=== PATIENT | female | born 1980 | race Caucasian/White ===

== ENCOUNTER 2016-05-14 11:07 | Emergency (ER) | payer MEDICAID, OTHER ==
[~2016-05-14] VITALS: Ht 172.7 cm; Wt 115.0 kg
[~2016-05-14 11:07] MED LIST: HYDR-3534 PO
[2016-05-14 11:26] VITALS: BP 122/82; PULSE 80; RESP 16; TEMP 98.8; O2SAT 98
--- NOTE | 2016-05-14 12:16 | PD ---
HPI Chief Complaint: Respiratory Symptoms Time Seen by Provider: 12:08 Travel History International Travel<30 days: No Contact w/Intl Traveler<30days: No Traveled to known affect area: No History of Present Illness HPI 35-year-old female smoker presents for evaluation of a cough. She says that the cough started 6 months ago and he never went away. She reports that today she [place] and the cough became worse which prompted evaluation. She reports that she took a shower which seemed to help. The cough is occasionally productive sputum. Denies fevers or chills. Denies any significant past medical history. She has no other complaints. PFSH Past Medical History Cancer: No Cardiovascular Problems: No Diabetes: No Diminished Hearing: No Endocrine: No Gastrointestinal Disorders: Yes (gerd) Genitourinary: No Hepatitis: No Hiatal Hernia: No Hypertension: No Immune Disorder: No Musculoskeletal: No Neurologic: No Psychiatric: No Reproductive: No Respiratory: Yes (PNEUMONIA AND BRONCHITIS) Thyroid Disease: No Influenza Vaccination: No ?: Not LMP: 05/05/16 Tubal Ligation: Yes Past Surgical History AICD: No Joint Replacement: No Pacemaker: No Other Surgery: No Social History Alcohol Use: No Tobacco Use: Yes (smokes a half a pack of cigarettes per day) Substance Use: No Allergies-Medications (Allergen,Severity, Reaction): Coded Allergies: Tums (Verified Adverse Reaction, Intermediate, VOMITING, 05/14/16) Reported Meds & Prescriptions Reported Meds & Active Scripts Active Proair Hfa 8.5 GM Inh (Albuterol Sulfate) 90 Mcg/Act Aer 2 Puff INH Q4-6H PRN 108 mcg/actuation Prednisone 20 Mg Tab 20 Mg PO BID 5 Days Review of Systems Except as stated in HPI: all other systems reviewed are Neg Physical Exam Narrative GENERAL: Well developed well-nourished female in no acute distress SKIN: Warm and dry. HEAD: Atraumatic. Normocephalic. EYES: Pupils equal and round. No scleral icterus. No injection or drainage. ENT: No nasal bleeding or discharge. Mucous membranes pink and moist. No oropharyngeal erythema or exudate. NECK: Trachea midline. No JVD. No lymphadenopathy. CARDIOVASCULAR: Regular rate and rhythm. No murmur appreciated. RESPIRATORY: No accessory muscle use. Clear to auscultation. Breath sounds equal bilaterally. Faint wheezing. No crackles. GASTROINTESTINAL: Abdomen soft, non-tender, nondistended. Hepatic and splenic margins not palpable. Data Data Last Documented VS Vital Signs Date Time Temp Pulse Resp B/P Pulse Ox O2 Delivery O2 Flow Rate FiO2 05/14/16 11:26 98.8 80 16 122/82 98 Orders Chest, Pa & Lat (05/14/16 ) MDM Medical Decision Making Medical Screen Exam Complete: Yes Emergency Medical Condition: Yes Medical Record Reviewed: Yes Interpretation(s) Chest x-ray normal Differential Diagnosis Bronchitis, seasonal allergies, chronic bronchitis, pneumonia, reactive airway disease, asthma Narrative Course This is a 35-year-old female smoker who presents with 6 month duration of cough. On examination she does have faint wheezing. I discussed with the patient thoroughly the importance of tobacco cessation. Ideally this patient follow-up with a sketcher for further investigation of this chronic cough. Diagnosis Primary Impression: Chronic cough Departure Forms: Tests/Procedures, Work Release Enter return to work date: May 15, 2016 Additional Instructions: Quit using tobacco products. Medication as prescribed. Follow-up with a primary care physician or sketcher. Return for any emergent medical conditions. Med/Other Pt SpecificInfo: Prescription(s) given Scripts Albuterol 8.5 GM Inh (Proair Hfa 8.5 GM Inh)90 Mcg/Act Aer2 Puff INH Q4-6H PRN ( SHORTNESS OF BREATH) #1 INHALER Ref 0 108 mcg/actuation Prov:Dwaine Espino MD 05/14/16 Prednisone 20 Mg Tab20 Mg PO BID 5 Days Ref 0 Prov:Dwaine Espino MD 05/14/16 Disposition: 01 DISCHARGE HOME Condition: Stable Mike Rizo May 14, 2016 12:16
[2016-05-14] MEDS ORDERED: ALBUAER3 INH (12:17)
[2016-05-14] MEDS ORDERED: PRED20 PO (12:17)
--- NOTE | 2016-05-14 12:59 | RADHPO ---
EXAM DATE/TIME: 05/14/2016 12:15 [facility] COMPARISON: CHEST PA & LAT, October 28, 2015, 12:58. INDICATIONS : Shortness of breath. MEDICAL HISTORY : Bronchitis. SURGICAL HISTORY : None. ENCOUNTER: Initial ACUITY: 4 - 6 months PAIN SCORE: 0/10 LOCATION: Bilateral chest FINDINGS: PA and lateral views of the chest demonstrate the lungs to be symmetrically aerated without evidence of mass, infiltrate or effusion. The cardiomediastinal contours are unremarkable. Osseous structure s are intact. CONCLUSION: No acute disease. Bharat Parks MD on May 14, 2016 at 12:57 Board Certified Radiologist. This report was verified electronically.
== END 2016-05-14 13:13 | disposition home or self-care (01) ==
LOC: PHEFT 11:07
DX: R05 Cough (principal); F17.210 Nicotine dependence, cigarettes, uncomplicated
CPT/HCPCS: 71020; 99283

== ENCOUNTER 2016-07-03 18:26 | Emergency (ER) | payer MEDICAID, OTHER ==
[~2016-07-03] VITALS: Ht 175.3 cm; Wt 115.9 kg
[~2016-07-03 18:26] MED LIST changes: +ALBUAER3 INH; -HYDR-3534 PO; +PRED20 PO
[2016-07-03 18:37] VITALS: BP 144/89; PULSE 108; RESP 18; TEMP 98.5; O2SAT 100
[2016-07-03] MEDS ORDERED: SODIUM CHLOR 0.9% 1000 ML INJ 1,000 ML IV ONE (19:57)
[2016-07-03] MEDS ORDERED: KETOROLAC TROMETHAMINE 30 MG/ML (IVP) VIAL IVP ONE (20:00)
[2016-07-03] MEDS ORDERED: ONDANSETRON HCL 4 MG/2 ML VIAL IVP ONE (20:00)
[2016-07-03] MEDS ORDERED: SODIUM CHLORIDE 0.9% FLUSH 10 ML FLUSH IVF PRN (20:00)
[2016-07-03 20:25] VITALS: RESP 18; O2SAT 98
[2016-07-03 20:26] VITALS: BP 121/53; PULSE 66; RESP 18; O2SAT 98
[2016-07-03 20:32] LABS: BLOOD, URINE NEG (NEG); GLUCOSE,URINE NEG (NEG); KETONE, URINE NEG (NEG); NITRITE,URINE NEG (NEG)
[2016-07-03 20:38] LABS: URINE COLOR YELLOW (YELLW/STRAW); WBC, URINE 0-2 /hpf (0-5)
[2016-07-03 20:39] LABS: COMMENT (UR) CULT NOT INDICATED; CULTURE IF INDICATED CULT NOT INDICATED; SQUAMOUS EPITHELIAL CELL URINE 0-5 /hpf (0-5)
[2016-07-03 21:19] VITALS: RESP 18
[2016-07-03] MEDS ORDERED: PROM25TA5 PO (21:21)
--- NOTE | 2016-07-03 21:22 | PD ---
HPI Chief Complaint: Headache Time Seen by Provider: 19:57 Travel History International Travel<30 days: No Contact w/Intl Traveler<30days: No Traveled to known affect area: No History of Present Illness HPI 36-year-old female presents to the emergency department by private transportation for complaint of migraine headache. Patient and frequently has migrainous headaches with cephalgia photophobia nausea. Patient does not have prodrome and does not associate headache onset with a specific event or activity. No recent fall or injury. Patient denies fever chills nausea vomiting respiratory illness symptoms sinusitis rhinorrhea or congestion sore throat earache neck stiffness cough chest pain also no GI complaint of abdominal pain diarrheal illness and no recent urinary symptoms for dysuria frequency urgency flank pain hematuria. Patient's last period was normal for her and denies . Patient rates headache pain 8-9/10 in intensity. Headache is not sudden onset thunderclap or worst ever. Patient with family history of headache and her mother and grandmother. No report of family history of cerebral aneurysm or subarachnoid hemorrhage. Patient denies any injury or fall. No neck stiffness denies any change in mentation double vision loss of vision change in speech or balance disturbance upper extremity numbness tingling or weakness. Patient states she is use [id number] medications acetaminophen and ibuprofen without symptomatic relief. Patient unable to identify exacerbating or alleviating factors. PFSH Past Medical History Narrative Medical Pneumonia bronchitis headache; tobacco use; nursing notes reviewed Cancer: No Cardiovascular Problems: No Diabetes: No Diminished Hearing: No Endocrine: No Gastrointestinal Disorders: Yes (gerd) Genitourinary: No Hepatitis: No Hiatal Hernia: No Hypertension: No Immune Disorder: No Musculoskeletal: No Neurologic: No Psychiatric: No Reproductive: No Respiratory: Yes (PNEUMONIA AND BRONCHITIS) Thyroid Disease: No Tetanus Vaccination: < 5 Years Influenza Vaccination: No ?: Not Tubal Ligation: Yes Past Surgical History AICD: No Joint Replacement: No Pacemaker: No Other Surgery: No Social History Alcohol Use: No Tobacco Use: Yes (smokes a half a pack of cigarettes per day) Substance Use: No Allergies-Medications (Allergen,Severity, Reaction): Coded Allergies: Tums (Verified Adverse Reaction, Intermediate, VOMITING, 07/03/16) Reported Meds & Prescriptions Reported Meds & Active Scripts Active Phenergan (Promethazine HCl) 25 Mg Tab 25 Mg PO Q6H PRN Review of Systems Except as stated in HPI: all other systems reviewed are Neg General / Constitutional: No: Fever, Chills Eyes: Positive: Photophobia, No: Diploplia, Blurred Vision HENT: Positive: Headaches, No: Congestion, Neck Stiffness, Neck Pain Cardiovascular: No: Chest Pain or Discomfort Respiratory: No: Shortness of Breath Gastrointestinal: No: Vomiting, Abdominal Pain Genitourinary: No: Dysuria Musculoskeletal: No: Myalgias, Arthralgias Skin: No Rash Neurologic: No: Weakness Psychiatric: No: Anxiety, Depression Endocrine: No: Heat Intolerance Hematologic/Lymphatic: No: Easy Bruising Physical Exam Narrative GENERAL: Well-developed well-nourished female in no acute distress no respiratory distress sitting comfortably in darkened room; GCS 15. SKIN: Warm and dry. HEAD: Atraumatic. Normocephalic. EYES: Pupils equal and round. Extraocular muscles intact. No scleral icterus. No injection or drainage. No papilledema by funduscopic exam. ENT: No nasal bleeding or discharge. Mucous membranes pink and moist. NECK: Trachea midline. No JVD. Supple no meningismus no nuchal rigidity. CARDIOVASCULAR: Regular rate and rhythm. RESPIRATORY: No accessory muscle use. Clear to auscultation. Breath sounds equal bilaterally. GASTROINTESTINAL: Abdomen soft, non-tender, nondistended. Hepatic and splenic margins not palpable. MUSCULOSKELETAL: Extremities without clubbing, cyanosis, or edema. No obvious deformities. NEUROLOGICAL: Awake and alert. No obvious cranial nerve deficits. Motor grossly within normal limits. Five out of 5 muscle strength in the arms and legs. No limb ataxia. No pronator drift. Sensory exam intact. DTRs 2+ and symmetric bilaterally. Normal speech. PSYCHIATRIC: Appropriate mood and affect; insight and judgment normal. Data Data Last Documented VS Vital Signs Date Time Temp Pulse Resp B/P Pulse Ox O2 Delivery O2 Flow Rate FiO2 07/03/16 21:19 18 07/03/16 20:53 68 98 Room Air 07/03/16 20:26 121/53 07/03/16 18:37 98.5 Orders Ecg Monitoring (07/03/16 19:57) Iv Access Insert/Monitor (07/03/16 19:57) Oximetry (07/03/16 19:57) Sodium Chloride 0.9% Flush (Ns Flush) (07/03/16 20:00) Ketorolac Inj (Toradol Inj) (07/03/16 20:00) Ondansetron Inj (Zofran Inj) (07/03/16 20:00) Sodium Chlor 0.9% 1000 Ml Inj (Ns 1000 M (07/03/16 19:57) Urinalysis - C+S If Indicated (07/03/16 19:57) Ed Urine Pregnancytest Poc (07/03/16 19:57) Labs Laboratory Tests Test 07/03/16 20:10 Urine Color YELLOW Urine Turbidity CLEAR Urine pH 6.0 Urine Specific [place] 1.005 Urine Protein NEG mg/dL Urine Glucose (UA) NEG mg/dL Urine Ketones NEG mg/dL Urine Occult Blood NEG Urine Nitrite NEG Urine Bilirubin NEG Urine Leukocyte Esterase NEG Urine WBC 0-2 /hpf Urine Squamous Epithelial 0-5 /hpf Cells Microscopic Urinalysis Comment CULT NOT INDICATED MDM Medical Decision Making Medical Screen Exam Complete: Yes Emergency Medical Condition: Yes Medical Record Reviewed: Yes Interpretation(s) poc hcg: negative ua: wnl Differential Diagnosis Headache, dehydration, viral syndrome, ich Narrative Course IV access obtained specimens collected and sent for resulting patient administered Toradol 30 mg IV Zofran 4 mg IV along with 1 L normal saline Urinalysis eyes normal range; [id number] hCG negative Patient reassessed and headache has markedly improved according to patient however rates pain 1-2/10 in intensity mild nausea but she states is related to the medication as most medication administered to her for nausea causes nausea. Patient reports she is desirous of being discharged home and voices no concerns for request work excuse. Diagnosis Primary Impression: Headache Additional Impression: H/O atypical migraine Referrals: Primary Care Physician call for appointment Patient Instructions: General Instructions Departure Forms: Tests/Procedures, Work Release Special Instructions: no work x 1 day Additional Instructions: No work times one day Follow-up with primary care provider Take Phenergan as prescribed as needed for nausea and/or vomiting Return to the emergency department for any concerns or change in condition Increase fluid hydration Take acetaminophen/Tylenol every 4 hours as needed for fever 100.4F or greater Take ibuprofen 6 mg as often as every 6 hours or 800 mg as often as every 8 hours as needed for pain associated inflammation or for fever 100.4F or greater Med/Other Pt SpecificInfo: Prescription(s) given Scripts Promethazine (Phenergan)25 Mg Tab25 Mg PO Q6H PRN (Nausea/Vomiting) #10 TAB Ref 0 Prov:Brigitte Goetz MD 07/03/16 Disposition: 01 DISCHARGE HOME Condition: Stable Brigitte Goetz MD Jul 03, 2016 21:22
[2016-07-03 21:59] VITALS: BP 123/57
== END 2016-07-03 22:03 | disposition home or self-care (01) ==
LOC: PHED 18:26
DX: R51 Headache (principal); H53.149 Visual discomfort, unspecified; R11.0 Nausea; F17.210 Nicotine dependence, cigarettes, uncomplicated
CPT/HCPCS: 81001; 84703; 96361; 96374; 96375; 99284; J1885; J2405; J7030

== ENCOUNTER 2016-07-23 21:58 | Emergency (ER) | payer MEDICAID, OTHER ==
[~2016-07-23] VITALS: Ht 175.3 cm; Wt 114.0 kg
[~2016-07-23 21:58] MED LIST changes: -ALBUAER3 INH; -PRED20 PO; +PROM25TA5 PO
[2016-07-23 22:08] VITALS: BP 108/72; PULSE 79; RESP 18; TEMP 98.6; O2SAT 98
[2016-07-23] MEDS ORDERED: IBUP400T20 PO (22:43)
[2016-07-23] MEDS ORDERED: PENICILLIN V POTASSIUM 500 MG TAB PO ONE (23:00)
[2016-07-23] MEDS ORDERED: LIDOCAINE 1%/EPINEPHrine 1:100,000 SOLN 20 ML VIAL INFIL ONE (23:00)
--- NOTE | 2016-07-23 23:05 | PD ---
HPI Chief Complaint: Oral / Dental Pain or Problem Time Seen by Provider: 22:44 Travel History International Travel<30 days: No Contact w/Intl Traveler<30days: No Traveled to known affect area: No History of Present Illness HPI 36-year-old female here for evaluation of left upper/posterior dental pain. Symptoms started around 6:30 while eating dinner. Pain was initially 7 out of 10, sharp. She took some ibuprofen. Pain is now 4 out of 10, constant. She is able to swallow and tolerate her secretions. PFSH Past Medical History Cancer: No Cardiovascular Problems: No Diabetes: No Diminished Hearing: No Endocrine: No Gastrointestinal Disorders: Yes (GERD) Genitourinary: No Hepatitis: No Hiatal Hernia: No Hypertension: No Immune Disorder: No Musculoskeletal: No Neurologic: No Psychiatric: No Reproductive: No Respiratory: Yes (PNEUMONIA AND BRONCHITIS) Thyroid Disease: No Influenza Vaccination: No ?: Unknown LMP: 07/03/16 : 4 Tubal Ligation: Yes Past Surgical History AICD: No Joint Replacement: No Pacemaker: No Other Surgery: No Social History Alcohol Use: No Tobacco Use: Yes (smokes a half a pack of cigarettes per day) Substance Use: No Allergies-Medications (Allergen,Severity, Reaction): Coded Allergies: Tums (Verified Adverse Reaction, Intermediate, VOMITING, 07/23/16) Reported Meds & Prescriptions Reported Meds & Active Scripts Active Reported Ibuprofen 400 Mg Tab 400 Mg PO Q4H PRN Review of Systems Except as stated in HPI: all other systems reviewed are Neg Physical Exam Narrative GENERAL: Pleasant, well-developed, well-nourished, comfortable, no acute distress. SKIN: Focused skin assessment warm/dry. HEAD: Atraumatic. Normocephalic. Mild left cheek swelling. EYES: Pupils equal and round. No scleral icterus. No injection or drainage. ENT: Mucous membranes pink and moist. No tongue or lip swelling. No drooling or stridor. Left upper/posterior molar with severe decay and tenderness. NECK: Trachea midline. No JVD. No nuchal rigidity. CARDIOVASCULAR: Regular rate and rhythm. Data Data Last Documented VS Vital Signs Date Time Temp Pulse Resp B/P Pulse Ox O2 Delivery O2 Flow Rate FiO2 07/23/16 22:41 20 07/23/16 22:08 98.6 79 108/72 98 Orders Penicillin V Potassium (Veetids) (5/15/17 23:00) Lidocai-Epi 1%-1:100,000 Inj (Xylocaine- (07/23/16 23:00) MDM Medical Decision Making Medical Screen Exam Complete: Yes Emergency Medical Condition: Yes Medical Record Reviewed: Yes Differential Diagnosis Dental pain, dental infection, dental cavity, abscess Narrative Course Left greater palatine nerve block performed and patient experienced immediate relief of pain. She was given a dose of Pen-VK here and will be discharged home with a prescription for Pen-VK and pain medication. She was instructed to follow-up with a dentist as soon as possible. She was informed on when to return to the emergency department. She verbalizes understanding and agreement with plan. Procedures Procedure Narrative Left greater palatine nerve block: 1 cc of 1% lidocaine with epinephrine was injected in the site of the left greater palatine nerve. Patient expressed immediate relief of pain. Tolerated well. No complications. Diagnosis Primary Impression: Pain, dental Referrals: Dentist 3 days Additional Instructions: Follow-up with a dentist this week. Return to the emergency department for worsening symptoms or any other concerns. Scripts Hydrocodone-Acetaminophen (Lortab)5-325 Mg Tab1 Tab PO Q6H PRN (PAIN) #15 TAB Ref 0 Prov:Jorge Alberto Argueta MD 07/23/16 Penicillin V Potassium 500 Mg [id number] Mg PO Q6H 10 Days Ref 0 Prov:Jorge Alberto Argueta MD 07/23/16 Disposition: 01 DISCHARGE HOME Condition: Stable Jorge Alberto Argueta MD July 23, 2016 23:05
[2016-07-23] MEDS ORDERED: HYDR-3533 PO (23:06)
[2016-07-23] MEDS ORDERED: PENI500T PO (23:06)
== END 2016-07-23 23:22 | disposition home or self-care (01) ==
LOC: PHED 21:58 → PHEFT 23:22
DX: K08.89 Other specified disorders of teeth and supporting structures (principal); K21.9 Gastro-esophageal reflux disease without esophagitis; F17.210 Nicotine dependence, cigarettes, uncomplicated
CPT/HCPCS: 64400

== ENCOUNTER 2017-03-18 16:33 | Emergency (ER) | payer BC, OTHER ==
[~2017-03-18] VITALS: Ht 175.3 cm; Wt 117.0 kg
[~2017-03-18 16:33] MED LIST changes: +HYDR-3533 PO; +IBUP1TAB5 PO; +PENI500T PO; -PROM25TA5 PO
[2017-03-18 16:39] VITALS: BP 162/83; PULSE 70; RESP 16; TEMP 98.8; O2SAT 98
--- NOTE | 2017-03-18 17:08 | PD ---
HPI Chief Complaint: Oral / Dental Pain or Problem Time Seen by Provider: 16:53 Travel History International Travel<30 days: No Contact w/Intl Traveler<30days: No Traveled to known affect area: No History of Present Illness HPI 36-year-old female with left upper dental pain. Symptom onset 1 week. Aggravated by heat, cold, chewing. Slightly relieved with dtcm-bsz-colspzk ibuprofen and Tylenol. Symptom severity is moderate. PFSH Past Medical History Medical History: Denies Significant Hx Cancer: No Cardiovascular Problems: No Diabetes: No Diminished Hearing: No Endocrine: No Gastrointestinal Disorders: Yes (GERD) Genitourinary: No Hepatitis: No Hiatal Hernia: No Hypertension: No Immune Disorder: No Musculoskeletal: No Neurologic: No Psychiatric: No Reproductive: No Respiratory: Yes (PNEUMONIA AND BRONCHITIS) Thyroid Disease: No Tetanus Vaccination: < 5 Years Influenza Vaccination: No ?: Not LMP: 03/18/17 : 4 Tubal Ligation: Yes Past Surgical History Surgical History: No Previous Surgery AICD: No Joint Replacement: No Pacemaker: No Other Surgery: No Social History Alcohol Use: No Tobacco Use: Yes (03/14 PPD) Substance Use: No Allergies-Medications (Allergen,Severity, Reaction): Coded Allergies: Sulfa (Sulfonamide Antibiotics) (Verified Allergy, Unknown, 03/18/17) hydrocodone (Verified Allergy, Unknown, 03/18/17) calcium (Unverified Adverse Reaction, Intermediate, VOMITING, 03/18/17) calcium carbonate (Unverified Adverse Reaction, Intermediate, VOMITING, 03/18/17) Reported Meds & Prescriptions Reported Meds & Active Scripts Active Reported Ibuprofen 400 Mg Tab 400 Mg PO Q4H PRN Review of Systems Except as stated in HPI: all other systems reviewed are Neg General / Constitutional: No: Fever Eyes: No: Visual changes HENT: No: Headaches Cardiovascular: No: Chest Pain or Discomfort Respiratory: No: Shortness of Breath Gastrointestinal: No: Abdominal Pain Genitourinary: No: Dysuria Physical Exam Narrative GENERAL: Alert well-appearing female. SKIN: Warm and dry. HEAD: Normocephalic. EYES: No scleral icterus. No injection or drainage. MOUTH: Mucous membranes moist, no lesions, tongue appear normal. Widespread dental decay. Left upper molar decayed with surrounding gum erythema. NECK: Supple, trachea midline. No lymphadenopathy. Data Data Last Documented VS Vital Signs Date Time Temp Pulse Resp B/P (MAP) Pulse Ox O2 Delivery O2 Flow Rate FiO2 03/18/17 16:39 98.8 70 16 162/83 (109) 98 MDM Medical Decision Making Medical Screen Exam Complete: Yes Emergency Medical Condition: Yes Differential Diagnosis Dental abscess, dental caries, periodontal disease Narrative Course 36 year old female here with left upper dental pain. She has widespread dental decay. She has a decayed and fractured tooth to the left upper molar with surrounding gum erythema. She'll be treated for dental infection. She is to follow-up with the dentist Diagnosis Primary Impression: Dentalgia Referrals: Dentist Scripts Nwvsooro-Igutihndurowmbq-Cqagnwlex Liq (Magic Mouthwash Adult Liq) 120 Ml Susp 10 ML SWISH-SWAL ACHS for Mouth sores, #120 ML 0 Refills Each 5mL contains: Nystatin 200,000units, Diphenhydramine 4.25mg, Viscous Lidocaine 10mg, [place] syrup 0.8 mL Prov: Yessy Hay 03/18/17 Amoxicillin (Amoxicillin) 500 Mg Tab 500 MG PO TID for Infection for 7 Days, TAB 0 Refills Prov: Yessy Hay 03/18/17 Yessy Hay Mar 18, 2017 17:08
[2017-03-18] MEDS ORDERED: AMOX500T PO (17:11)
[2017-03-18] MEDS ORDERED: MAGICADU2 SWISH-SWAL (17:12)
== END 2017-03-18 17:23 | disposition home or self-care (01) ==
LOC: PHEFT 16:33
DX: K13.70 Unspecified lesions of oral mucosa (principal); K08.89 Other specified disorders of teeth and supporting structures; K21.9 Gastro-esophageal reflux disease without esophagitis; F17.200 Nicotine dependence, unspecified, uncomplicated
CPT/HCPCS: 99284

== ENCOUNTER 2017-04-07 14:21 | Emergency (ER) | payer SELFPAY ==
[~2017-04-07] VITALS: Ht 175.3 cm; Wt 114.0 kg
[~2017-04-07 14:21] MED LIST changes: +AMOX500T PO; -HYDR-3533 PO; +MAGICADU2 SWISH-SWAL; -PENI500T PO
[2017-04-07 14:44] VITALS: BP 134/75; PULSE 75; RESP 16; TEMP 98.5; O2SAT 100
--- NOTE | 2017-04-07 16:18 | PD ---
HPI Chief Complaint: Musculoskeletal Complaint Time Seen by Provider: 15:48 Travel History International Travel<30 days: No Contact w/Intl Traveler<30days: No Traveled to known affect area: No History of Present Illness HPI 36-year-old female presents to emergency department complaining of right wrist pain that started yesterday. States that she was playing with her daughter at [employer] and went home on the couch and this started hurting. States that she does lift her child regularly and says that she got her thumb caught at one point but is unable to describe this incident and did not have pain at the time. Patient denies falls or other trauma. Patient describes the pain as dull and has occasional radiating pain from the wrist to the lateral elbow. Patient has decreased range of motion of rotational movement of her forearm secondary to pain. Patient states she also has mild tenderness to palpation of the elbow joint. Denies fever, chills. Denies numbness or tingling. Denies chronic medical issues. PFSH Past Medical History Cancer: No Cardiovascular Problems: No Diabetes: No Diminished Hearing: No Endocrine: No Gastrointestinal Disorders: Yes (GERD) Genitourinary: No Hepatitis: No Hiatal Hernia: No Hypertension: No Immune Disorder: No Musculoskeletal: No Neurologic: No Psychiatric: No Reproductive: No Respiratory: Yes (PNEUMONIA AND BRONCHITIS) Thyroid Disease: No : 4 Tubal Ligation: Yes Past Surgical History AICD: No Joint Replacement: No Pacemaker: No Other Surgery: No Social History Alcohol Use: No Tobacco Use: Yes (03/14 PPD) Substance Use: No Allergies-Medications (Allergen,Severity, Reaction): Coded Allergies: Sulfa (Sulfonamide Antibiotics) (Verified Allergy, Unknown, 04/07/17) hydrocodone (Verified Allergy, Unknown, 04/07/17) calcium (Unverified Adverse Reaction, Intermediate, VOMITING, 04/07/17) calcium carbonate (Unverified Adverse Reaction, Intermediate, VOMITING, ) Reported Meds & Prescriptions Reported Meds & Active Scripts Active Amoxicillin 500 Mg Tab 500 Mg PO TID 7 Days Review of Systems Except as stated in HPI: all other systems reviewed are Neg Physical Exam Narrative GENERAL: Well-developed well-nourished in no apparent distress SKIN: Focused skin assessment warm/dry. HEAD: Atraumatic. Normocephalic. EYES: Pupils equal and round. No scleral icterus. No injection or drainage. ENT: No nasal bleeding or discharge. Mucous membranes pink and moist. NECK: Trachea midline. No JVD. CARDIOVASCULAR: Regular rate and rhythm. No murmur appreciated. RESPIRATORY: No accessory muscle use. Clear to auscultation. Breath sounds equal bilaterally. GASTROINTESTINAL: Abdomen soft, non-tender, nondistended. Left wrist- TTP over lateral wrist and thumb base, positive Finkelsteins, negative Tinel's, negative, senior mechanical engineer strength equal bilateral. No rashes present MUSCULOSKELETAL: No obvious deformities. No clubbing. No cyanosis. No edema. NEUROLOGICAL: Awake and alert. No obvious cranial nerve deficits. Motor grossly within normal limits. Normal speech. PSYCHIATRIC: Appropriate mood and affect; insight and judgment normal. Data Data Last Documented VS Vital Signs Date Time Temp Pulse Resp B/P (MAP) Pulse Ox O2 Delivery O2 Flow Rate FiO2 04/07/17 14:44 98.5 75 16 134/75 (94) 100 Orders Orders Wrist, Complete ([id number]) (04/07/17 ) Ibuprofen (Motrin) (04/07/17 16:30) Splint Or Brace Apply/Monitor (04/07/17 16:42) Ed Discharge Order (04/07/17 16:46) Cockup Hand Splint (04/07/17 ) MDM Medical Decision Making Medical Screen Exam Complete: Yes Emergency Medical Condition: Yes Differential Diagnosis Tenosynovitis, tendinitis, muscle spasms, wrist fracture Narrative Course 36-year-old female presents to emergency department complaining of right wrist pain that started yesterday. States that she was playing with her daughter at [employer] and went home on the couch and this started hurting. States that she does lift her child regularly and says that she got her thumb caught at one point but is unable to describe this incident and did not have pain at the time. Patient denies falls or other trauma. Patient describes the pain as dull and has occasional radiating pain from the wrist to the lateral elbow. Patient has decreased range of motion of rotational movement of her forearm secondary to pain. Patient states she also has mild tenderness to palpation of the elbow joint. Denies fever, chills. Denies numbness or tingling. Denies chronic medical issues. Vital signs stable. His exam findings consistent with tenosynovitis versus wrist fracture versus tendinitis X-ray without acute process. Wrist splint placed. Reassured patient. Advised she should follow-up with primary care physician for further treatment and evaluation. Consider orthopedics. Tylenol or Motrin per package instructions for pain relief. Return to the emergency room for worsening or persistent symptoms. As a side, patient has been taking antibiotics for almost a week and has developed diarrhea. Patient requests a work note for the diarrhea. Diagnosis Primary Impression: Tenosynovitis Referrals: Primary Care Physician Additional Instructions: Use ice or heat for symptom relief. Elevate the joint above the heart to reduce swelling. You may use compression with Lee wrap or similar to reduce swelling. If symptoms persist or worsen, return to the emergency department. Follow up with your primary care physician within 2 days. Consider following up with orthopedics for your pain. Disposition: 01 DISCHARGE HOME Condition: Stable Amna Barajas Apr 07, 2017 16:18
[2017-04-07] MEDS ORDERED: IBUPROFEN 800 MG TAB PO ONE (16:30)
--- NOTE | 2017-04-07 16:30 | RADRPT ---
EXAM DATE/TIME: 04/07/2017 15:46 [facility] COMPARISON: No previous studies available for comparison. INDICATIONS : All over right wrist pain, no known injury MEDICAL HISTORY : None. SURGICAL HISTORY : None. ENCOUNTER: Initial ACUITY: 2 days PAIN SCORE: 6/10 LOCATION: Right wrist FINDINGS: 3 views right wrist. Bone alignment within normal limits. No evidence of fracture. No evidence of deo int narrowing. No focal bone erosion. CONCLUSION: Right wrist series within normal limits. Nikhil Lopez MD on April 07, 2017 at 16:27 Board Certified Radiologist. This report was verified electronically.
== END 2017-04-07 17:02 | disposition home or self-care (01) ==
LOC: PHED 14:21 → PHEFT 17:02
DX: M65.9 Synovitis and tenosynovitis, unspecified (principal); R19.7 Diarrhea, unspecified; K21.9 Gastro-esophageal reflux disease without esophagitis; F17.200 Nicotine dependence, unspecified, uncomplicated; Z88.2 Allergy status to sulfonamides; Z88.5 Allergy status to narcotic agent
CPT/HCPCS: 73110; 99283; L3908

== ENCOUNTER 2017-04-25 15:48 | Emergency (ER) | payer SELFPAY ==
[~2017-04-25] VITALS: Ht 175.3 cm; Wt 113.0 kg
[~2017-04-25 15:48] MED LIST changes: -IBUP1TAB5 PO; -MAGICADU2 SWISH-SWAL
[2017-04-25 16:00] VITALS: BP 159/82; PULSE 70; RESP 16; TEMP 98.5; O2SAT 97
[2017-04-25 16:14] LABS: BILIRUBIN, URINE NEG (NEG); BLOOD, URINE NEG (NEG); GLUCOSE,URINE NEG (NEG); KETONE, URINE NEG (NEG); NITRITE,URINE NEG (NEG); PH, URINE 7.5 (5.0-8.5); URINE LEUKOCYTE ESTERASE NEG (NEG)
[2017-04-25 16:23] LABS: URINE COLOR YELLOW (YELLW/STRAW)
[2017-04-25 16:24] LABS: RBC, URINE 0-3 /hpf (0-3); WBC, URINE 0-2 /hpf (0-5)
[2017-04-25] MEDS ORDERED: ONDANSETRON HCL 4 MG/2 ML VIAL IV PUSH ONE (16:45)
[2017-04-25] MEDS ORDERED: SODIUM CHLOR 0.9% 1000 ML INJ 1,000 ML IV ONE (16:45)
[2017-04-25 17:05] LABS: AUTOMATED NEUTROPHIL # 5.6 TH/MM3 (1.8-7.7); BASOPHIL # 0.1 TH/MM3 (0-0.2); BASOPHIL % 0.9 % (0.0-2.0); EOSINOPHIL # 0.1 TH/MM3 (0-0.4); EOSINOPHIL % 1.8 % (0.0-4.0); HEMATOCRIT 40.8 % (35.0-46.0); HEMOGLOBIN 13.5 GM/DL (11.6-15.3); LYMPH % 25.1 % (9.0-44.0); MEAN CELL VOLUME 85.4 FL (80.0-100.0); MEAN CORPUSCULAR HEMOGLOBIN 28.3 PG (27.0-34.0); MEAN CORPUSCULAR HGB CONC 33.1 % (32.0-36.0); MEAN PLATELET VOLUME 11.3 FL (7.0-11.0); MONO % 4.1 % (0.0-8.0); MONOCYTE # 0.3 TH/MM3 (0-0.9); NEUT % 68.1 % (16.0-70.0); PLATELET COUNT 167 TH/MM3 (150-450); RED BLOOD COUNT 4.78 MIL/MM3 (4.00-5.30); RED CELL DISTRIBUTION WIDTH 12.7 % (11.6-17.2); WHITE BLOOD COUNT 8.1 TH/MM3 (4.0-11.0)
[2017-04-25 17:16] VITALS: BP 101/55; PULSE 69; RESP 16; O2SAT 97
--- NOTE | 2017-04-25 17:18 | PD ---
HPI Chief Complaint: GI Complaint Time Seen by Provider: 16:36 Travel History International Travel<30 days: No Contact w/Intl Traveler<30days: No Traveled to known affect area: No History of Present Illness HPI Patient is a 36-year-old female who comes in complaining of nausea. She says she had 2 episodes of vomiting earlier. She says that she was concerned, because she could not tell what was causing the nausea. She says she had a tubal ligation in 2016, thought that something could be going on with . 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 She denies any abdominal pain. She denies fever or chills. She says this just started today. Nothing has seemed to make the nausea better. Severity is mild. PFSH Past Medical History Cancer: No Cardiovascular Problems: No Diabetes: No Diminished Hearing: No Endocrine: No Gastrointestinal Disorders: Yes (GERD) GERD: Yes Genitourinary: No Hepatitis: No Hiatal Hernia: No Hypertension: No Immune Disorder: No Musculoskeletal: No Neurologic: No Psychiatric: No Reproductive: No Respiratory: Yes (PNEUMONIA AND BRONCHITIS) Pneumonia: Yes Thyroid Disease: No Tetanus Vaccination: < 5 Years Influenza Vaccination: No ?: Not LMP: 2 DAYS AGO/TUBAL : 4 Tubal Ligation: Yes Past Surgical History AICD: No Joint Replacement: No Pacemaker: No Other Surgery: No Social History Alcohol Use: No Tobacco Use: Yes (03/14 PPD) Substance Use: No Allergies-Medications (Allergen,Severity, Reaction): Coded Allergies: Sulfa (Sulfonamide Antibiotics) (Verified Allergy, Unknown, 04/25/17) hydrocodone (Verified Allergy, Unknown, 04/25/17) calcium (Unverified Adverse Reaction, Intermediate, VOMITING, 04/25/17) calcium carbonate (Unverified Adverse Reaction, Intermediate, VOMITING, ) Reported Meds & Prescriptions Reported Meds & Active Scripts Active Review of Systems Except as stated in HPI: all other systems reviewed are Neg General / Constitutional: No: Fever, Chills HENT: No: Headaches, Lightheadedness Cardiovascular: No: Chest Pain or Discomfort Respiratory: No: Shortness of Breath Gastrointestinal: Positive: Nausea, No: Diarrhea, Abdominal Pain, Constipation Genitourinary: No: Dysuria Musculoskeletal: No: Myalgias, Edema Skin: No Rash, No Change in Pigmentation Neurologic: No: Weakness, Dizziness Physical Exam Narrative GENERAL: Awake and alert, in no acute distress. SKIN: Focused skin assessment warm/dry. HEAD: Atraumatic. Normocephalic. EYES: Pupils equal and round. No scleral icterus. ENT: No nasal bleeding or discharge. Mucous membranes pink and moist. NECK: Trachea midline. No JVD. CARDIOVASCULAR: Regular rate and rhythm. No murmur appreciated. RESPIRATORY: No accessory muscle use. Clear to auscultation. Breath sounds equal bilaterally. GASTROINTESTINAL: Abdomen soft, non-tender, nondistended. MUSCULOSKELETAL: No obvious deformities. No clubbing. No cyanosis. No edema. NEUROLOGICAL: Awake and alert. No obvious cranial nerve deficits. Motor grossly within normal limits. Normal speech. PSYCHIATRIC: Appropriate mood and affect; insight and judgment normal. Data Data Last Documented VS Vital Signs Date Time Temp Pulse Resp B/P (MAP) Pulse Ox O2 Delivery O2 Flow Rate FiO2 04/25/17 17:16 69 16 101/55 (70) 97 Room Air 04/25/17 16:00 98.5 Orders Orders Urinalysis - C+S If Indicated (04/25/17 16:02) Ed Urine Pregnancytest Poc (04/25/17 16:02) Iv Access Insert/Monitor (04/25/17 16:43) Complete Blood Count With Diff (04/25/17 16:43) Comprehensive Metabolic Panel (04/25/17 16:43) Sodium Chlor 0.9% 1000 Ml Inj (Ns 1000 M (04/25/17 16:45) Ondansetron Inj (Zofran Inj) (04/25/17 16:45) Labs Laboratory Tests Test 04/25/17 16:00 04/25/17 16:54 Urine Color YELLOW Urine Turbidity CLEAR Urine pH 7.5 Urine Specific [place] 1.020 Urine Protein NEG mg/dL Urine Glucose (UA) NEG mg/dL Urine Ketones NEG mg/dL Urine Occult Blood NEG Urine Nitrite NEG Urine Bilirubin NEG Urine Leukocyte Esterase NEG Urine RBC 0-3 /hpf Urine WBC 0-2 /hpf Urine Squamous Epithelial Cells 6-8 /hpf Microscopic Urinalysis Comment CULT NOT INDICATED White Blood Count 8.1 TH/MM3 Red Blood Count 4.78 MIL/MM3 Hemoglobin 13.5 GM/DL Hematocrit 40.8 % Mean Corpuscular Volume 85.4 FL Mean Corpuscular Hemoglobin 28.3 PG Mean Corpuscular Hemoglobin Concent 33.1 % Red Cell Distribution Width 12.7 % Platelet Count 167 TH/MM3 Mean Platelet Volume 11.3 FL Neutrophils (%) (Auto) 68.1 % Lymphocytes (%) (Auto) 25.1 % Monocytes (%) (Auto) 4.1 % Eosinophils (%) (Auto) 1.8 % Basophils (%) (Auto) 0.9 % Neutrophils # (Auto) 5.6 TH/MM3 Lymphocytes # (Auto) 2.0 TH/MM3 Monocytes # (Auto) 0.3 TH/MM3 Eosinophils # (Auto) 0.1 TH/MM3 Basophils # (Auto) 0.1 TH/MM3 CBC Comment DIFF FINAL Differential Comment Blood Urea Nitrogen 8 MG/DL Creatinine 0.86 MG/DL Random Glucose 86 MG/DL Total Protein 7.0 GM/DL Albumin 3.4 GM/DL Calcium Level 8.3 MG/DL Alkaline Phosphatase 76 U/L Aspartate Amino Transf (AST/SGOT) 10 U/L Alanine Aminotransferase (ALT/SGPT) 10 U/L Total Bilirubin 0.1 MG/DL Sodium Level 139 MEQ/L Potassium Level 4.0 MEQ/L Chloride Level 107 MEQ/L Carbon Dioxide Level 29.0 MEQ/L Anion Gap 3 MEQ/L Estimat Glomerular Filtration Rate 75 ML/MIN [facility] Medical Decision Making Medical Screen Exam Complete: Yes Emergency Medical Condition: Yes Medical Record Reviewed: Yes Differential Diagnosis gastroenteritis vs viral illness vs electrolyte abnormalities Narrative Course Patient is a 36-year-old female comes in complaining of nausea. Exam shows no acute abnormalities. IV sevens, labs sent. Labs show no acute abnormalities. Patient given IV fluids and Zofran. She is able to drink water without vomiting. She will be discharged with a prescription for Zofran. Advised to follow-up with a primary care doctor. Advised to drink plenty of fluids. Advised to eat a bland diet if she is feeling hungry. Advised to return anytime for any worsening symptoms. Diagnosis Primary Impression: Nausea Patient Instructions: Acute Nausea and Vomiting (ED), General Instructions Additional Instructions: Drink plenty of fluids. Eat a bland diet if you are feeling hungry. Take Zofran as needed for nausea. Follow-up with a primary care doctor. Return to the ED as needed for any worsening symptoms. Scripts Ondansetron Odt (Zofran Odt) 4 Mg Tab 4 MG SL Q6HR Y for Nausea/Vomiting, #12 TAB 0 Refills Prov: Soledad Stevenson MD 04/25/17 Disposition: 01 DISCHARGE HOME Condition: Stable Soledad Stevenson MD Apr 25, 2017 17:18
[2017-04-25 17:28] LABS: CHLORIDE 107 MEQ/L (98-107); SODIUM (NA) 139 MEQ/L (136-145)
[2017-04-25 17:31] LABS: ALBUMIN 3.4 GM/DL (3.4-5.0); BLOOD UREA NITROGEN 8 MG/DL (7-18); CALCIUM 8.3 MG/DL (8.5-10.1); GLUCOSE,RANDOM 86 MG/DL (74-106)
[2017-04-25 17:34] LABS: ALT (GPT) 10 U/L (10-53); AST (GOT) 10 U/L (15-37)
[2017-04-25 17:35] LABS: CREATININE 0.86 MG/DL (0.50-1.00); GLOMERULAR FILTRATION RATE 75 ML/MIN (>89)
[2017-04-25 17:36] LABS: TOTAL BILIRUBIN ADULT 0.1 MG/DL (0.2-1.0)
[2017-04-25 17:37] LABS: ALKALINE PHOSPHATASE 76 U/L (45-117)
[2017-04-25] MEDS ORDERED: ZOFR4TAB3 SL (17:45)
[2017-04-25 18:32] VITALS: BP 105/64
== END 2017-04-25 18:15 | disposition home or self-care (01) ==
LOC: PHED 15:48
DX: R11.2 Nausea with vomiting, unspecified (principal); K21.9 Gastro-esophageal reflux disease without esophagitis; F17.210 Nicotine dependence, cigarettes, uncomplicated; Z88.2 Allergy status to sulfonamides; Z88.5 Allergy status to narcotic agent; Z98.51 Tubal ligation status
CPT/HCPCS: 80053; 81001; 84703; 85025; 96361; 96374; 99284; J2405; J7030

== ENCOUNTER 2017-06-25 11:09 | Emergency (ER) | payer MEDICAID ==
[~2017-06-25] VITALS: Ht 175.3 cm; Wt 111.0 kg
[~2017-06-25 11:09] MED LIST changes: -AMOX500T PO; +ZOFR4TAB3 SL
[2017-06-25 11:19] VITALS: BP 133/65; PULSE 80; RESP 16; TEMP 98.7; O2SAT 98
[2017-06-25] MEDS ORDERED: ZOFR4TAB PO (11:41)
--- NOTE | 2017-06-25 11:41 | PD ---
HPI Chief Complaint: Cold / Flu Symptoms Time Seen by Provider: 11:25 Travel History International Travel<30 days: No Contact w/Intl Traveler<30days: No Traveled to known affect area: No History of Present Illness HPI 37-year-old female presents emergency department for evaluation of cough, congestion this started approximately 1 week ago. Says she lost her voice this week that lasted 2 days which is unusual for her. Patient states she is concerned because she was exposed to somebody with the flu when she traveled to [place] at the end of May. Says that the flu affected most members of her family and she does not want to give this infection to her daughter. In addition, says that she has had non bloody vomitus several times this week. Says she has a history of vomiting and believes this is secondary to stress. She has not been evaluated for this by an outside provider. She denies any fevers or chills. Denies chest pain or shortness breath. Denies abdominal pain. Denies urinary problems. Says she has a history of a tubal ligation and does not believe she is . PFSH Past Medical History Cancer: No Cardiovascular Problems: No Diabetes: No Diminished Hearing: No Endocrine: No Gastrointestinal Disorders: Yes (GERD) GERD: Yes Genitourinary: No Hepatitis: No Hiatal Hernia: No Hypertension: No Immune Disorder: No Musculoskeletal: No Neurologic: No Psychiatric: No Reproductive: No Respiratory: Yes (PNEUMONIA AND BRONCHITIS) Pneumonia: Yes Thyroid Disease: No Influenza Vaccination: No ?: Not LMP: 06/08/17 : 4 Tubal Ligation: Yes Past Surgical History AICD: No Gynecologic Surgery: Yes (Tubal lig) Joint Replacement: No Pacemaker: No Other Surgery: No Social History Alcohol Use: No Tobacco Use: Yes (03/14 PPD) Substance Use: No Allergies-Medications (Allergen,Severity, Reaction): Coded Allergies: Sulfa (Sulfonamide Antibiotics) (Verified Allergy, Unknown, 06/25/17) hydrocodone (Verified Allergy, Unknown, 06/25/17) calcium (Unverified Adverse Reaction, Intermediate, VOMITING, 06/25/17) calcium carbonate (Unverified Adverse Reaction, Intermediate, VOMITING, ) Reported Meds & Prescriptions Reported Meds & Active Scripts Active Zofran (Ondansetron HCl) 4 Mg Tab 4 Mg PO Q8HR PRN 5 Days Review of Systems Except as stated in HPI: all other systems reviewed are Neg Physical Exam Narrative GENERAL: Well developed, well-nourished no apparent distress, not actively coughing in the emergency department today SKIN: Focused skin assessment warm/dry. HEAD: Atraumatic. Normocephalic. EYES: Pupils equal and round. No scleral icterus. No injection or drainage. ENT: No nasal bleeding or discharge. Mucous membranes pink and moist. NECK: Trachea midline. No JVD. No lymphadenopathy CARDIOVASCULAR: Regular rate and rhythm. No murmur appreciated. RESPIRATORY: No accessory muscle use. Clear to auscultation. Breath sounds equal bilaterally. GASTROINTESTINAL: Abdomen soft, non-tender, nondistended. No CVA tenderness MUSCULOSKELETAL: No obvious deformities. No clubbing. No cyanosis. No edema. Homans sign negative bilaterally NEUROLOGICAL: Awake and alert. No obvious cranial nerve deficits. Motor grossly within normal limits. Normal speech. PSYCHIATRIC: Appropriate mood and affect; insight and judgment normal. Data Data Last Documented VS Vital Signs Date Time Temp Pulse Resp B/P (MAP) Pulse Ox O2 Delivery O2 Flow Rate FiO2 06/25/17 11:19 98.7 80 16 133/65 (87) 98 MDM Medical Decision Making Medical Screen Exam Complete: Yes Emergency Medical Condition: Yes Differential Diagnosis Bronchitis, allergic rhinitis, postnasal drip, pneumonia, upper respiratory infection Narrative Course 37-year-old female with history tobacco dependence, cough, and nausea with vomiting presents emergency department for evaluation of cough, congestion and vomiting started approximately 1 week ago. Patient states that she lost her voice a couple days this week which is abnormal for her. Says she is used over- the-counter ibuprofen but no other [id number] medications for her symptoms. Says she is concerned because she does not want to give the influenza to her daughter. Says she was exposed at the end of May for the flu. Says she does have a history of a tubal ligation and does not believe she is . Denies abdominal pain. Vital signs are stable. The exam findings essentially unremarkable except for some mild erythema to the posterior pharynx with clear postnasal drip and mild cobblestoning. Lungs clear to auscultation bilaterally, no CVA tenderness. After review the EMR, it appears the patient was here in April for nausea was evaluated with labs. She was advised to follow-up as an outpatient for evaluation however, she did not do so. In addition, she has had a chronic cough and has been evaluated here previously for it as well to include a chest xray in May. Based off of H&P, I suggested that patient follow up with [facility] for her care as we do not have much else to offer in terms of her chronic cough and nausea. I do not believe imaging is necessary based off of today's visit. She requests a work note. Pt advised to follow up as discussed. Return for worsening or persistent symptoms. Diagnosis Primary Impression: Chronic cough Additional Impressions: Post-nasal drip Nausea Referrals: [facility] Departure Forms: Tests/Procedures, Work Release Enter return to work date: Jun 25, 2017 Additional Instructions: You may use a drop of honey and lemon in a cup of warm water to soothe your cough. (If greater than 1 year old) Ensure good hydration and a nutritious diet. Note that viral infections may last for several weeks. Follow up with your primary physician within 2-3 days. Return to the ED for worsening or persistent symptoms. Consider using [id number] medication such as Zyrtec, Claritin, or Laura for possible allergic symptoms. Generic is okay. Consider nasal saline to irrigate your nose and reduce some of the nasal drip that you have. Consider smoking cessation as this may be contributing to your cough. Scripts Ondansetron (Zofran) 4 Mg Tab 4 MG PO Q8HR Y for NAUSEA OR VOMITING for 5 Days, TAB 0 Refills Prov: Bernard Vizcarra MD 06/25/17 Disposition: 01 DISCHARGE HOME Condition: Stable Amna Barajas Jun 25, 2017 11:41
== END 2017-06-25 12:01 | disposition home or self-care (01) ==
LOC: PHEFT 11:09
DX: R05 Cough (principal); R09.82 Postnasal drip; R11.2 Nausea with vomiting, unspecified; F17.210 Nicotine dependence, cigarettes, uncomplicated; K21.9 Gastro-esophageal reflux disease without esophagitis
CPT/HCPCS: 99283